=== PATIENT | female | born 1965 | race Caucasian/White ===

== ENCOUNTER → 2024-11-26 | Outpatient (CLI) | payer SELFPAY ==
[2024-11-26 17:20] LABS: Absolute Lymphocyte Count 1.72 X10^3/uL (0.83-4.51); Absolute Neutrophil Count 2.4 X10^3/uL (2.0-7.7); Basophil# 0.01 X10^3/uL; Basophil% 0.2 % (0-1); Eosinophil# 0.04 X10^3/uL; Eosinophils% 0.9 % (0-5); Hematocrit 33.6 % (37-47); Hemoglobin 11.4 g/dL (12.0-15.0); Lymphocyte # 1.72 X10^3/ul (0.83-4.51); Mean Corp Hgb Conc 33.9 g/dL (32-36); Mean Corpuscular Hgb 28.2 pg (27.0-32.0); Mean Corpuscular Volume 83.2 fL (81-99); Mean Platelet Vol. 8.8 fl (6.2-12.0); Monocyte# 0.34 X10^3/uL; Monocyte% 7.5 % (0-10); NRBC Flagged by Analyzer 0 % (0-5); Neutrophil # 2.41 X10^3/uL (2.7-7.7); Neutrophil % 53.2 % (47-70); Platelet Count 289 K/mm3 (150-450); RBC Distribution Width CV 12.7 % (11.6-14.6); Red Blood Count 4.04 M/mm3 (4.2-5.4); White Blood Count 4.5 K/mm3 (4.4-11.0)
[2024-11-26 17:29] LABS: Erythrocyte Sedimentation Rate 17 mm/hr (0-30)
[2024-11-26 18:45] LABS: Anion Gap 12 (5-15); BUN 12 mg/dL (4-19); BUN/Creat Ratio 19.5 RATIO (10-20); Calcium,Total 9.3 mg/dL (7.6-11.0); Carbon Dioxide 25.8 mmol/L (21.0-32.0); Chloride 100 mmol/L (98-108); Creatinine, Serum 0.61 mg/dL (0.70-1.20); EST Glomerular Filtration Rate 104 (>60); Glucose 93 mg/dL (70-99); Potassium 4.2 mmol/L (3.3-5.1); Sodium Level 137 mmol/L (133-145)
[2024-11-26 19:19] LABS: Rheumatoid Factor < 10.0 IU/mL (<15); Uric Acid 2.8 mg/dL (2.6-6.0)
[2024-11-26 22:05] LABS: Body Fluid QC Type(s) BF1Q, BF2Q; Pathologist Review Will follow
[2024-11-26 22:18] LABS: Source- Body Fluid SYNOVIAL
[2024-11-27 09:33] LABS: Pathologist Comment May follow
[2024-11-27 09:38] LABS: Synovial Fld Mononuclear WBC # 0.401 10^3/ul
[2024-11-27 09:42] LABS: AUTO B FLUID DILUENT BKGD CT WBC <0.1 RBC <0.01 (W<.1,R<.01)
[2024-11-27 09:44] LABS: Color / Synovial Fluid Yellow (Pale Yellow); Source / Synovial Fluid RIGHT KNEE
[2024-11-27 12:23] LABS: CRYSTALS, BODY FLUID NO CRYSTALS SEEN
[2024-11-27 15:30] LABS: Appearance /Synovial Fluid Turbid (CLEAR)
[2024-11-27 15:41] LABS: Synovial Fld Polynuclear WBC % 91.8 %
[2024-11-27 15:43] LABS: Synovial Fld Polynuclear WBC # 20.862 10^3/uL
[2024-11-27 15:44] LABS: Synovial Fld Mononuclear WBC % 7.5 %
[2024-11-27 15:45] LABS: Lymph 2 %; Monocyte /Synovial Fluid 2 %; Neutrophil 96 % (0-25)
[2024-11-27 15:52] LABS: RBC /Synovial Fluid 0.004 10^6/uL (0)
[2024-11-30 11:08] LABS: ANTINUCLEAR ANTIBODIES DIRECT Negative (Negative); CRP, High Sensitivity 40.03 mg/L (0.00-3.00)
== END | disposition home or self-care (01) ==
LOC: LAB 15:49
PROVIDERS: Referring Provider Physician Assistant Surgical; Visit Provider Physician Assistant Surgical
DX: M25.461 Effusion, right knee (principal)
CPT/HCPCS: 36415; 80048; 84550; 85025; 85652; 86038; 86141; 86200; 86431; 86617; 89050; 89051; 89060